=== PATIENT | female | born 1945 | race Caucasian/White ===

== ENCOUNTER 2021-02-22 18:55 | Emergency (ER) | payer MEDICARE ==
[2021-02-22] MEDS ORDERED: AUGMENTIN 875-1 EACH PO (21:07)
[2021-02-22] MEDS ORDERED: HYDROCODON-ACE1 EAC4 PO (21:13)
[2021-02-22] MEDS ORDERED: CEPHALEXIN500 M1 PO (21:15)
== END 2021-02-22 21:29 | disposition home or self-care (01) ==
LOC: ER1 18:55
DX: S62.633B Displaced fracture of distal phalanx of left middle finger, initial encounter for open fracture (principal); I10 Essential (primary) hypertension; W23.0XXA Caught, crushed, jammed, or pinched between moving objects, initial encounter; Y92.009 Unspecified place in unspecified non-institutional (private) residence as the place of occurrence of the external cause
CPT/HCPCS: 26755; 73130; 90715; 96372; 96374; 99283; J0690